=== PATIENT | male | born 1955 | race Hispanic/Latino ===

== ENCOUNTER 2022-02-18 02:50 | Inpatient (IN) | payer OTHER ==
[2022-02-18] MEDS ORDERED: Potassium Chloride 20 MEQ TAB PO SCH (04:15)
[2022-02-18 04:43] LABS: Hemoglobin 14.3 g/dL (13.5-17.5); Mean Corpuscular HGB CONC 33.7 g/dL (32.0-36.0); Mean Corpuscular Volume 94.9 fl (81.2-95.1); Platelet Count 87 10x3/uL (150-450); RBC Distribution Width 13.5 % (11.5-14.5); Red Blood Cell (RBC) Count 4.47 10x6/uL (4.32-5.72); White Blood Cell (WBC) Count 11.1 10x3/uL (3.5-10.5)
[2022-02-18 04:47] LABS: Anion Gap 13 mmol/L (10-20); BUN (Urea Nitrogen) 15 mg/dL (8.4-25.7); Calc. Creatinine Clearance 130 mL/min (70-130); Calcium 8.9 mg/dL (7.8-10.44); Carbon Dioxide 25 mmol/L (23-31); Cardiac Risk 3.9 (Less than 4.5); Chloride 110 mmol/L (98-107); Cholesterol 134 mg/dl (< 200 Desired); Estimated GFR 99; Glucose 115 mg/dL (80-115); HDL Cholesterol 34 mg/dL (>60 Neg Risk); LDL Cholesterol, Calculated 87 mg/dL; Magnesium 1.9 mg/dL (1.6-2.6); Potassium 3.8 mmol/L (3.5-5.1); Sodium 144 mmol/L (136-145); Triglycerides 64 mg/dL (Less than 150); Uric Acid 7.3 mg/dL (3.5-7.2)
[2022-02-18 05:07] LABS: Troponin I 0.399 ng/mL (< 0.028)
[2022-02-18] MEDS: Nitroglycerin 2% Ointment 1 INCH/1 GM Packet TOP SCH ×3 (05:55→23:11)
[2022-02-18] MEDS: Furosemide 40 MG/4 ML VIAL SLOW IVP SCH ×2 (05:58→16:27)
[2022-02-18 06:05] LABS: MDiff Complete? YES; Platelet Morphology Comment Appears Decreased
[2022-02-18 06:11] LABS: Band 2 % (5-11); Eosinophils 1 % (0-10); Lymphocytes 12 % (21-51); Monocytes 9 % (0-10); Neutrophil 76 % (42-75)
[2022-02-18] MEDS ORDERED: Heparin 10,000 UNITS/ 10 ML VIAL ONE ×2 (07:50→12:44)
[2022-02-18] MEDS ORDERED: Nitroglycerin 50 MG/250 ML BOT 250 ML ONE (07:50)
[2022-02-18] MEDS ORDERED: Lidocaine 1% 20 ML MDV ONE (07:50)
[2022-02-18] MEDS ORDERED: Bivalirudin 250 MG VIAL ONE (07:51)
[2022-02-18] MEDS ORDERED: Adenosine 6 MG/2 ML VIAL ONE (07:51)
[2022-02-18] MEDS ORDERED: Verapamil 5 MG/2 ML VIAL ONE (07:51)
[2022-02-18] MEDS ORDERED: Communication Order-Pharmacy FS SCH (08:45)
[2022-02-18] MEDS ORDERED: Losartan 25 MG TAB PO SCH (09:00)
[2022-02-18 09:11] LABS: PTT 26.7 sec (22.0-33.0); Prothrombin Time 10.6 sec (9.5-12.1)
[2022-02-18 09:23] LABS: Troponin I 0.683 ng/mL (< 0.028)
[2022-02-18] MEDS ORDERED: Lidocaine 1% MPF 2 ML VIAL ONE (10:00)
[2022-02-18] MEDS ORDERED: Midazolam HCl 2 mg/2 ml Vial ONE ×2 (10:07→13:20)
[2022-02-18] MEDS ORDERED: Fentanyl 100 MCG/2 ML VIAL ONE (10:07)
[2022-02-18] MEDS ORDERED: TICAGRELOR 90 MG TABLET ONE (12:33)
[2022-02-18 12:43] LABS: Hemoglobin A1c 5.5 % (4.0-6.0)
[2022-02-18] MEDS ORDERED: Iopamidol 300 61% 50 ML VIAL FS ONE (13:16)
[2022-02-18] MEDS ORDERED: Iopamidol 300 61% 100 ML VIAL FS ONE (13:16)
[2022-02-18] MEDS ORDERED: Sodium Chloride 0.9% 200 ML IV PRN (13:47)
[2022-02-18] MEDS ORDERED: Acetaminophen/Codeine 30-300mg Tablet PO PRN ×2 (13:47)
[2022-02-18] MEDS ORDERED: Nitroglycerin 0.4 MG TAB (25 Tab Bottle) SL PRN (13:47)
[2022-02-18] MEDS: Carvedilol 3.125 MG TAB PO SCH ×2 (15:23→18:00)
[2022-02-18] MEDS: Aspirin 81 mg Enteric Coated Tablet PO SCH (15:23)
[2022-02-18] MEDS ORDERED: Enoxaparin Sodium 40 MG/0.4 ML SYRINGE SC SCH (21:00)
[2022-02-18] MEDS ORDERED: Atorvastatin Calcium 20 MG TAB PO SCH (21:00)
[2022-02-18] MEDS: TICAGRELOR 90 MG TABLET PO SCH (22:11)
[2022-02-18] MEDS ORDERED: Nitroglycerin 2% Ointment 1 INCH/1 GM Packet TOP PRN (22:30)
[2022-02-19] MEDS: Furosemide 40 MG/4 ML VIAL SLOW IVP SCH (06:24)
[2022-02-19 09:05] LABS: Hemoglobin 15.8 g/dL (13.5-17.5); Mean Corpuscular HGB CONC 34.4 g/dL (32.0-36.0); Mean Corpuscular Hemoglobin 31.7 pg (27.0-33.0); Mean Corpuscular Volume 92.2 fl (81.2-95.1); Platelet Count 91 10x3/uL (150-450); RBC Distribution Width 13.8 % (11.5-14.5); Red Blood Cell (RBC) Count 4.98 10x6/uL (4.32-5.72); White Blood Cell (WBC) Count 10.9 10x3/uL (3.5-10.5)
[2022-02-19 09:10] LABS: MDiff Complete? YES; Manual Diff?? YES
[2022-02-19 09:19] LABS: ALT (SGPT) 98 U/L (8-55); AST (SGOT) 48 U/L (5-34); Albumin 4.1 g/dL (3.4-4.8); Alkaline Phosphatase 62 U/L (40-110); Anion Gap 13 mmol/L (10-20); BUN (Urea Nitrogen) 16 mg/dL (8.4-25.7); Bilirubin, Total 1.6 mg/dL (0.2-1.2); Calc. Creatinine Clearance 120 mL/min (70-130); Carbon Dioxide 26 mmol/L (23-31); Chloride 105 mmol/L (98-107); Estimated GFR 96; Globulin 2.6 g/dL (2.4-3.5); Glucose 152 mg/dL (80-115); Potassium 3.5 mmol/L (3.5-5.1); Protein, Total 6.7 g/dL (5.8-8.1); Sodium 140 mmol/L (136-145)
[2022-02-19 09:34] LABS: Band 4 % (5-11); Eosinophils 1 % (0-10); Lymphocytes 8 % (21-51); Monocytes 6 % (0-10); Neutrophil 76 % (42-75); Reactive Lymphocytes 5 % (0-10)
[2022-02-19 09:37] LABS: Platelet Morphology Comment Appears Decreased
[2022-02-19] MEDS: TICAGRELOR 90 MG TABLET PO SCH ×2 (09:39→20:27)
[2022-02-19] MEDS: Furosemide 40 MG TAB PO SCH ×2 (09:40→16:21)
[2022-02-19] MEDS: Carvedilol 3.125 MG TAB PO SCH ×2 (09:40→16:21)
[2022-02-19] MEDS: Aspirin 81 mg Enteric Coated Tablet PO SCH (09:42)
[2022-02-19] MEDS ORDERED: Atorvastatin Calcium 20 MG TAB PO SCH (21:00)
[2022-02-20 06:34] VITALS: BMI 33.7
[2022-02-20] MEDS ORDERED: Potassium Chloride 20 MEQ TAB PO SCH (08:00)
[2022-02-20 08:06] VITALS: TEMP 97.9
[2022-02-20] MEDS: Carvedilol 3.125 MG TAB PO SCH (08:40)
[2022-02-20] MEDS: Furosemide 40 MG TAB PO SCH ×2 (08:41→09:33)
[2022-02-20] MEDS: Aspirin 81 mg Enteric Coated Tablet PO SCH (08:41)
[2022-02-20] MEDS: TICAGRELOR 90 MG TABLET PO SCH (08:42)
[2022-02-20 15:15] VITALS: BP 101/68
== END 2022-02-20 11:50 | disposition home or self-care (01) | DRG 246 ==
LOC: CSHTELE 02:50
PROVIDERS: ADMIT Family Medicine; ATTEND Internal Medicine
PROC: 027236Z Dilation of Coronary Artery, Three Arteries with Three Drug-eluting Intraluminal Devices, Percutaneous Approach (ICD-10-PCS; principal; 2022-02-18)
PROC: 4A023N7 Measurement of Cardiac Sampling and Pressure, Left Heart, Percutaneous Approach (ICD-10-PCS; 2022-02-18)
PROC: B2111ZZ Fluoroscopy of Multiple Coronary Arteries using Low Osmolar Contrast (ICD-10-PCS; 2022-02-18)
PROC: B2151ZZ Fluoroscopy of Left Heart using Low Osmolar Contrast (ICD-10-PCS; 2022-02-18)
DX: I50.21 Acute systolic (congestive) heart failure (principal); I21.4 Non-ST elevation (NSTEMI) myocardial infarction; J96.01 Acute respiratory failure with hypoxia; I25.10 Atherosclerotic heart disease of native coronary artery without angina pectoris; Z20.822 Contact with and (suspected) exposure to COVID-19; I10 Essential (primary) hypertension; I49.3 Ventricular premature depolarization; I49.1 Atrial premature depolarization; F17.210 Nicotine dependence, cigarettes, uncomplicated; I25.5 Ischemic cardiomyopathy; R74.8 Abnormal levels of other serum enzymes; D69.6 Thrombocytopenia, unspecified; E78.5 Hyperlipidemia, unspecified; E66.9 Obesity, unspecified; Z82.49 Family history of ischemic heart disease and other diseases of the circulatory system; Z83.3 Family history of diabetes mellitus; Z71.6 Tobacco abuse counseling; Z68.33 Body mass index [BMI] 33.0-33.9, adult; Z79.82 Long term (current) use of aspirin; Z79.899 Other long term (current) drug therapy
CPT/HCPCS: 36415; 36416; 80048; 80053; 80061; 83036; 83735; 84443; 84484; 84550; 85025; 85347; 85610; 85730; 92928; 93005; 93010; 93306; 93458; 94760; 97139; 99152; 99153; C1725; C1769; C1874; C1887; C1894; C9600; J0153; J0583; J1644; J1940; J2250; J3010; Q9967; U0003; U0005